=== PATIENT | male | born 1995 | race Caucasian/White ===

== ENCOUNTER 2021-07-07 19:05 | Emergency (ER) | payer OTHER ==
[~2021-07-07] VITALS: Ht 180.3 cm; Wt 69.1 kg
[2021-07-07 20:25] VITALS: BP 134/84
[2021-07-07] MEDS ORDERED: IBUPROFEN 400 MG TABLET. PO ONE (21:00)
--- NOTE | 2021-07-07 21:19 | PHYS DOC ---
Past Medical History Past Medical History: No Pertinent History Past Surgical History: Other Additional Past Surgical Histo: R)lower leg fx with repair with julia and screws. Smoking Status: Never Smoker Alcohol Use: None Drug Use: None General Adult EDM: Chief Complaint: ANKLE PROBLEM HPI: HPI: Patient is a 25 year old male who presents with right ankle, foot and heel pain after jumping down 3 stairs. States he heard a pop. He rates his pain 8 out of 10. States he cannot put pressure on it. Review of Systems: Review of Systems: Constitutional: Denies fever or chills. [] Eyes: Denies change in visual acuity. [] HENT: Denies nasal congestion or sore throat. [] Respiratory: Denies cough or shortness of breath. [] Cardiovascular: Denies chest pain or + right ankle and foot edema. [] GI: Denies abdominal pain, nausea, vomiting, bloody stools or diarrhea. [] : Denies dysuria. [] Musculoskeletal: Denies back pain or + right ankle joint pain. + Right lateral foot + right heel [] Integument: Denies rash. + Bruising [] Neurologic: Denies headache, focal weakness or sensory changes. [] Endocrine: Denies polyuria or polydipsia. [] Lymphatic: Denies swollen glands. [] Psychiatric: Denies depression or anxiety. [] Heart Score: C/O Chest Pain: No Risk Factors: Risk Factors: DM, Current or recent (<one month) smoker, HTN, HLP, family history of CAD, obesity. Risk Scores: Score 0 - 3: 2.5% MACE over next 6 weeks - Discharge Home Score 4 - 6: 20.3% MACE over next 6 weeks - Admit for Clinical Observation Score 7 - 10: 72.7% MACE over next 6 weeks - Early Invasive Strategies Current Medications: Current Medications Medications (Trade) Dose Ordered Sig/Saba Start Time Stop Time Status Last Admin Dose Admin Ibuprofen (Motrin) 800 mg 1X ONCE 07/07/21 21:00 07/07/21 21:01 DC 07/07/21 20:57 800 MG Allergies: Allergies: Allergies Coded Allergies Type Severity Reaction Last Updated Verified No Known Drug Allergies 10/28/15 No Physical Exam: PE: Constitutional: Well developed, well nourished, no acute distress, non-toxic appearance. [] HENT: Normocephalic, atraumatic, bilateral external ears normal, oropharynx moist, no oral exudates, nose normal. [] Eyes: PERRLA, EOMI, conjunctiva normal, no discharge. [] Neck: Normal range of motion, no tenderness, supple, no stridor. [] Cardiovascular:Heart rate regular rhythm, no murmur [] Lungs & Thorax: Bilateral breath sounds clear to auscultation [] Abdomen: Bowel sounds normal, soft, no tenderness, no masses, no pulsatile masses. [] Skin: Warm, dry, no erythema, no rash. Right lateral bruising [] Back: No tenderness, no CVA tenderness. [] Extremities: + Right lateral ankle and calcaneus tenderness, no cyanosis, no clubbing, ROM intact but very limited due to swelling and pain, 2+ edema. [] Neurologic: Alert and oriented X 3, normal motor function, normal sensory function, no focal deficits noted. [] Psychologic: Affect normal, judgement normal, mood normal. [] Current Patient Data: Vital Signs: Vital Signs Date Time Temp Pulse Resp B/P (MAP) Pulse Ox O2 Delivery O2 Flow Rate FiO2 07/07/21 20:25 98.4 67 20 134/84 (101) 96 Room Air 98.4 EKG: EKG: [] Radiology/Procedures: Radiology/Procedures: [] Impression: [facility] [address] [place] [address] IMAGING REPORT Signed PATIENT: ANGELICA RICHARDSON ACCOUNT: [id number] : 1995 LOCATION: ER AGE: 25 SEX: M EXAM STATUS: REG ER ORD. PHYSICIAN: DANETTE PAULA APRN REASON: bruising, swelling, heard pop PROCEDURE: ANKLE RIGHT 3V Study: 1. XR EXAM OF ANKLE_RIGHT 3VIEWS 2. XR FOOT_RIGHT 3 VIEWS Indication: Bruising and swelling. Comparison: None. Findings: Right ankle: Partially imaged intramedullary julia is intact. No periprosthetic fracture. The malleoli are intact. Symmetric ankle mortise. No significant arthrosis. Right foot: Acute fracture of the calcaneus extending into the calcaneocuboid and subtalar joints. No additional fracture is identified. No gross malalignment considering the absence of weightbearing. Edematous soft tissues at the hindfoot. Impression: Right ankle and right foot: Acute fracture of the calcaneus without significant displacement. Intra- articular extension into the calcaneocuboid and subtalar joints. No additional fracture is identified. Electronically signed by: BULL STEELE MD (07/07/2021 11:04 PM) [facility] DICTATED and SIGNED BY: BULL STEELE MD DATE: 07/07/21 [id number] 0 Course & Med Decision Making: Course & Med Decision Making Pertinent Labs and Imaging studies reviewed. (See chart for details) See HPI. Ambulatory to steady gait. Speaks in full clear sentences. Skin pink warm and dry. Bruising to the right lateral ankle with 2+ swelling and tenderness. Right lateral foot also has slight swelling and bruising. Very limited ROM at the right ankle due to pain and swelling. Pedal pulse strong present. Cannot put pressure on the extremity. Cap refill less than 2 seconds. No deformity. Can wiggle toes. Patient has crutches here that he brought from home. He is placed in a walking boot. He is to follow-up with orthopedics. I spoke with Dr Godinez and he states to have him follow up in clinic. [] Geno Disclaimer: Geno Disclaimer: This electronic medical record was generated, in whole or in part, using a voice recognition dictation system. Departure Departure Impression: Primary Impression: Right calcaneal fracture Qualified Codes: S92.001A - Unspecified fracture of right calcaneus, initial encounter for closed fracture Disposition: HOME / SELF CARE / HOMELESS Condition: STABLE Referrals: UNKNOWN PCP NAME (PCP) TATIANA GODINEZ DO Patient Instructions: Calcaneal Fracture Additional Instructions: Follow-up with orthopedic calling the office in the morning. Do not put any weight on the extremity. Take medication as prescribed and with food. This medication will make you sleepy so do not drive or go to work on this medication. Scripts Hydrocodone Bit/Acetaminophen (HYDROCODONE-APAP 5-325 ) 1 Tab Tablet 1 TAB PO PRN Q6HRS PRN for PAIN, #15 TAB 0 Refills Prov: DANETTE PAULA [employer] 07/07/21 DANETTE PAULA APRN Jul 07, 2021 21:19
--- NOTE | 2021-07-07 23:06 | RAD ---
Study: 1. XR EXAM OF ANKLE_RIGHT 3VIEWS 2. XR FOOT_RIGHT 3 VIEWS Indication: Bruising and swelling. Comparison: None. Findings: Right ankle: Partially imaged intramedullary julia is intact. No periprosthetic fracture. The malleoli are intact. S ymmetric ankle mortise. No significant arthrosis. Right foot: Acute fracture of the calcaneus extending into the calcaneocuboid and subtalar joints. No additional fracture is identified. No gross malalignment considering the absence of weightbearing. Edematous sof t tissues at the hindfoot. Impression: Right ankle and right foot: Acute fracture of the calcaneus without significant displacement. Intra-articular extension into the calcaneocuboid and subtalar joints. No additional fracture is identified. Electronically signed by: BULL STEELE MD (07/07/2021 11:04 PM) [facility]
[2021-07-07] MEDS ORDERED: HYDROcodone/APAP 5/325MG 1 TAB TABLET PO ONE (23:15)
[2021-07-07] MEDS ORDERED: HYDR-2761 PO (23:16)
== END 2021-07-07 23:25 | disposition home or self-care (01) ==
LOC: ER 19:05
DX: S92.001A Unspecified fracture of right calcaneus, initial encounter for closed fracture (principal); X50.9XXA Other and unspecified overexertion or strenuous movements or postures, initial encounter; Y93.89 Activity, other specified; Y92.89 Other specified places as the place of occurrence of the external cause; Y99.8 Other external cause status
CPT/HCPCS: 73610; 73630; 99284